=== PATIENT | female | born 1975 | race Caucasian/White ===

== ENCOUNTER 2016-07-03 14:55 | Observation (INO) | payer OTHER ==
[2016-07-03] MEDS ORDERED: SODIUM CHLORIDE 0.9% 1,000 ML IV STA (15:22)
[2016-07-03] MEDS ORDERED: MORPHINE SULFATE 4 MG/ML SYRINGE IV STA (15:22)
[2016-07-03 15:50] LABS: Basophils % (A) 1 %; CH 32.7; CHCM 33.5; Eosinophils # (A) 0.4 k/uL (0-0.7); Eosinophils % (A) 5 %; HCT 39.5 % (34.0-46.0); HGB 13.1 gm/dL (11.4-16.0); Luc % (Auto) 4; Lymphocytes # (A) 2.5 k/uL (1.0-4.8); Lymphocytes % (A) 35 %; MCH 32.4 pg (25.0-35.0); MCHC 33.1 g/dL (31.0-37.0); Mean Platelet Volume 7.6; Monocytes # (A) 0.6 k/uL (0-1.0); Monocytes % (A) 8 %; Neutrophils # (A) 3.4 k/uL (1.3-7.7); Neutrophils % (A) 47 %; RBC 4.03 m/uL (3.80-5.40); RDW 12.2 % (11.5-15.5); WBC 7.3 k/uL (3.8-10.6)
--- NOTE | 2016-07-03 15:56 | ED ---
General Adult HPI - General Chief complaint: Chest Pain Stated complaint: Chest Pain Time Seen by Provider: 07/03/16 15:16 Source: patient, RN notes reviewed, old records reviewed Mode of arrival: wheelchair Limitations: no limitations - History of Present Illness Initial comments: This is a 40-year-old female year for evaluation of chest pain. Patient has anterior chest pain sitting on her chest heaviness. Patient is a smoker but not high blood pressure Gisell show no diabetes, positive family history of both aneurysm and sudden cardiac mother and father. Patient coming in with chest pain today, patient states chest pain started last night and today no fevers cough or congestion or travel history no significant sick contacts and no prior history of similar symptoms. Patient denies modifying factors for pain home, not worse with exertion no shortness of breath and no diaphoresis patient denies history of alcohol abuse no bowel pain no nausea vomiting - Related Data Home Medications Medication Instructions Recorded Confirmed No Known Home Medications [No 07/03/16 07/03/16 Known Home Medications] Allergies Allergy/AdvReac Type Severity Reaction Status Date / Time No Known Allergies Allergy Verified 07/03/16 15:38 Review of Systems ROS Statement: Those systems with pertinent positive or pertinent negative responses have been documented in the HPI. ROS Other: All systems not noted in ROS Statement are negative. Past Medical History Past Medical History: No Reported History History of Any Multi-Drug Resistant Organisms: None Reported Past Surgical History: Tubal Ligation Past Psychological History: No Psychological Hx Reported Smoking Status: Current every day smoker Past Alcohol Use History: None Reported Past Drug Use History: Marijuana - Past Family History Mother Additional Family Medical History / Comment(s): AAA - pt at 58 from dx Father Family Medical History: Coronary Artery Disease (CAD), Diabetes Mellitus, Hypertension Additional Family Medical History / Comment(s): passed with heart issues General Exam Limitations: no limitations General appearance: alert, in no apparent distress, anxious Head exam: Present: atraumatic, normocephalic, normal inspection Eye exam: Present: normal appearance, PERRL, EOMI. Absent: scleral icterus, conjunctival injection, periorbital swelling ENT exam: Present: normal exam, mucous membranes moist Neck exam: Present: normal inspection. Absent: tenderness, meningismus, lymphadenopathy Respiratory exam: Present: normal lung sounds bilaterally. Absent: respiratory distress, wheezes, rales, rhonchi, stridor Cardiovascular Exam: Present: regular rate, normal rhythm, normal heart sounds. Absent: systolic murmur, diastolic murmur, rubs, gallop, clicks GI/Abdominal exam: Present: soft, normal bowel sounds. Absent: distended, tenderness, guarding, rebound, rigid Extremities exam: Present: normal inspection, full ROM, normal capillary refill. Absent: tenderness, pedal edema, joint swelling, calf tenderness Back exam: Present: normal inspection Neurological exam: Present: alert, oriented X3, CN II-XII intact Psychiatric exam: Present: normal affect, normal mood Skin exam: Present: warm, dry, intact, normal color. Absent: rash Course Vital Signs 07/03/16 07/03/16 07/03/16 15:05 15:31 15:41 Temperature 97.7 F 97.1 F L Pulse Rate 72 69 Pulse Rate [ 74 [employer] Executive ] Respiratory 23 15 Rate Blood Pressure 145/86 129/90 O2 Sat by Pulse 100 96 Oximetry 07/03/16 07/03/16 16:48 18:03 Temperature 97.9 F Pulse Rate 53 L 54 L Pulse Rate [ [employer] Executive ] Respiratory 16 16 Rate Blood Pressure 135/81 121/69 O2 Sat by Pulse 97 100 Oximetry - Reevaluation(s) Reevaluation #1: 07/03/16 16:48 Patient's pain is improved with pain control Medical Decision Making - Medical Decision Making 40 female here for evaluation of chest pain, anterior chest pain with history of family heart disease mother father with heart , patient smoker no other cardiac risk factors. Patient does have a CT which is negative for PE or dissection, patient will be admitted for cardiac observation initial troponin is negative as well as EKG negative for ST elevation - Lab Data Result diagrams: 07/05/16 06:37 07/03/16 15:35 Lab Results 07/03/16 07/03/16 07/03/16 Range/Units 15:35 15:35 15:35 WBC 7.3 (3.8-10.6) k/uL RBC 4.03 (3.80-5.40) m/uL Hgb 13.1 (11.4-16.0) gm/dL Hct 39.5 (34.0-46.0) % MCV 98.0 (80.0-100.0) fL MCH 32.4 (25.0-35.0) pg MCHC 33.1 (31.0-37.0) g/dL RDW 12.2 (11.5-15.5) % Plt Count 252 (150-450) k/uL Neutrophils % 47 % Lymphocytes % 35 % Monocytes % 8 % Eosinophils % 5 % Basophils % 1 % Neutrophils # 3.4 (1.3-7.7) k/uL Lymphocytes # 2.5 (1.0-4.8) k/uL Monocytes # 0.6 (0-1.0) k/uL Eosinophils # 0.4 (0-0.7) k/uL Basophils # 0.0 (0-0.2) k/uL PT (9.0-12.0) sec INR (<1.1) APTT (22.0-30.0) sec D-Dimer (<0.60) mg/L FEU Sodium 142 (137-145) mmol/L Potassium 4.1 (3.5-5.1) mmol/L Chloride 107 (98-107) mmol/L Carbon Dioxide 24 (22-30) mmol/L Anion Gap 11 mmol/L BUN 11 (7-17) mg/dL Creatinine 0.60 (0.52-1.04) mg/dL Est GFR (MDRD) Af Amer >60 (>60 ml/min/1.73 sqM) Est GFR (MDRD) Non-Af >60 (>60 ml/min/1.73 sqM) Glucose 89 (74-99) mg/dL Calcium 9.5 (8.4-10.2) mg/dL Magnesium 2.0 (1.6-2.3) mg/dL Total Bilirubin 0.9 (0.2-1.3) mg/dL AST 15 (14-36) U/L ALT 29 (9-52) U/L Alkaline Phosphatase 65 (38-126) U/L Total Creatine Kinase 60 (30-135) U/L CK-MB (CK-2) 0.8 (0.0-2.4) ng/mL CK-MB (CK-2) Rel Index 1.3 Troponin I <0.012 (0.000-0.034) ng/mL Total Protein 7.8 (6.3-8.2) g/dL Albumin 4.4 (3.5-5.0) g/dL Lipase 35 (23-300) U/L 07/03/16 07/03/16 Range/Units 15:35 15:35 WBC (3.8-10.6) k/uL RBC (3.80-5.40) m/uL Hgb (11.4-16.0) gm/dL Hct (34.0-46.0) % MCV (80.0-100.0) fL MCH (25.0-35.0) pg MCHC (31.0-37.0) g/dL RDW (11.5-15.5) % Plt Count (150-450) k/uL Neutrophils % % Lymphocytes % % Monocytes % % Eosinophils % % Basophils % % Neutrophils # (1.3-7.7) k/uL Lymphocytes # (1.0-4.8) k/uL Monocytes # (0-1.0) k/uL Eosinophils # (0-0.7) k/uL Basophils # (0-0.2) k/uL PT 10.4 (9.0-12.0) sec INR 1.0 (<1.1) APTT 26.2 (22.0-30.0) sec D-Dimer <0.17 (<0.60) mg/L FEU Sodium (137-145) mmol/L Potassium (3.5-5.1) mmol/L Chloride (98-107) mmol/L Carbon Dioxide (22-30) mmol/L Anion Gap mmol/L BUN (7-17) mg/dL Creatinine (0.52-1.04) mg/dL Est GFR (MDRD) Af Amer (>60 ml/min/1.73 sqM) Est GFR (MDRD) Non-Af (>60 ml/min/1.73 sqM) Glucose (74-99) mg/dL Calcium (8.4-10.2) mg/dL Magnesium (1.6-2.3) mg/dL Total Bilirubin (0.2-1.3) mg/dL AST (14-36) U/L ALT (9-52) U/L Alkaline Phosphatase (38-126) U/L Total Creatine Kinase (30-135) U/L CK-MB (CK-2) (0.0-2.4) ng/mL CK-MB (CK-2) Rel Index Troponin I (0.000-0.034) ng/mL Total Protein (6.3-8.2) g/dL Albumin (3.5-5.0) g/dL Lipase (23-300) U/L - Radiology Data Radiology results: report reviewed (Chest x-ray and CT negative for acute disease), image reviewed Critical Care Time Critical Care Time: Yes Total Critical Care Time: 31 Disposition Clinical Impression: Chest pain Disposition: ADMITTED IP TO THIS HOSP Condition: Undetermined
[2016-07-03 16:02] LABS: ALT 29 U/L (9-52); AST 15 U/L (14-36); Alkaline Phosphatase 65 U/L (38-126); Anion Gap 11 mmol/L; Blood Urea Nitrogen 11 mg/dL (7-17); Calcium 9.5 mg/dL (8.4-10.2); Carbon Dioxide 24 mmol/L (22-30); Chloride 107 mmol/L (98-107); Glucose 89 mg/dL (74-99); Non-African American GFR(MDRD) >60 (>60 ml/min/1.73 sqM); Potassium 4.1 mmol/L (3.5-5.1); Sodium 142 mmol/L (137-145); Total Bilirubin 0.9 mg/dL (0.2-1.3); Total Protein 7.8 g/dL (6.3-8.2)
[2016-07-03 16:04] LABS: Partial Thromboplastin Time 26.2 sec (22.0-30.0); Prothrombin Time 10.4 sec (9.0-12.0)
[2016-07-03 16:07] LABS: Creatine Kinase 60 U/L (30-135)
[2016-07-03 16:19] LABS: Creatine Kinase MB 0.8 ng/mL (0.0-2.4); Troponin I <0.012 ng/mL (0.000-0.034)
--- NOTE | 2016-07-03 16:28 | XR ---
EXAMINATION TYPE: XR chest 2V DATE OF EXAM: 07/03/2016 4:19 PM COMPARISON: 10/18/2015 HISTORY: 40-year-old female with chest pain and shortness of breath for 4 days TECHNIQUE: Frontal and lateral views FINDINGS: The cardiomediastinal silhouette, aorta, and pulmonary vasculature are within normal limits. Lungs an d pleural spaces are clear. IMPRESSION: No acute cardiopulmonary process.
[2016-07-03] MEDS ORDERED: RX INFO: IV CONTRAST WAS GIVEN 1 EACH MISC MISCELLANE PRN (16:45)
[2016-07-03] MEDS ORDERED: NITROGLYCERIN SL TABS 0.4 MG TAB SUBLINGUAL PRN (16:46)
[2016-07-03] MEDS ORDERED: MORPHINE SULFATE 4 MG/ML SYRINGE IV PRN (16:46)
[2016-07-03] MEDS ORDERED: ASPIRIN 81 MG CHEW PO STA (16:46)
--- NOTE | 2016-07-03 17:29 | CT ---
EXAMINATION TYPE: CT angio chest DATE OF EXAM: 07/03/2016 5:08 PM COMPARISON: Correlation radiograph same day HISTORY: 40-year-old female complains of chest pain and difficulty breathing. TECHNIQUE: Contiguous axial scanning of the chest performed with IV Contrast, patient injected with 1 00 mL of Omnipaque 350. Coronal/sagittal MIP reconstructions performed. CT DLP: 115.2 mGycm Automated exposure control for dose reduction was used. FINDINGS: Heart is normal size without pericardial effusion. Aorta is normal caliber with a bovine configuration to the aortic arch. No thoracic lymphadenopathy. There is satisfactory opacification of the pulmonary arterial system without evidence for pulmonary e mbolus. There is mild diffuse bronchial wall thickening and mild centrilobular emphysema. No consolidation or pleural effusion. Tiny hiatal hernia. Otherwise, visualized upper abdomen shows no gross abnormal body. Bones: No osseous destructive process. IMPRESSION: 1. NO EVIDENCE FOR PULMONARY EMBOLUS. 2. COPD IN THIS RELATIVELY YOUNGER PATIENT. 3. NO ACUTE PULMONARY PROCESS.
[2016-07-03] MEDS: SODIUM CHLORIDE 0.9% 1,000 ML IV SCH (17:31)
[2016-07-03] MEDS ORDERED: HEPARIN SODIUM,PORCINE 5,000 UNIT/ML 1 ML VIAL IV ONE (18:08)
[2016-07-03] MEDS ORDERED: HEPARIN SODIUM,PORCINE 5,000 UNIT/ML 1 ML VIAL IV PRN (18:08)
[2016-07-03] MEDS ORDERED: HEPARIN SODIUM,PORCINE/D5W PMX 25,000 UNIT in DEXTROSE/WATER 1 500ML.BAG IV SCH (18:15)
[2016-07-03 19:28] LABS: Basophils # (A) 0.1 k/uL (0-0.2); Basophils % (A) 1 %; CH 32.7; CHCM 32.9; Eosinophils # (A) 0.6 k/uL (0-0.7); Eosinophils % (A) 6 %; HCT 39.3 % (34.0-46.0); HDW 2.11; HGB 12.9 gm/dL (11.4-16.0); Luc # (Auto) 0.37; Luc % (Auto) 4; Lymphocytes # (A) 3.2 k/uL (1.0-4.8); Lymphocytes % (A) 34 %; MCH 32.8 pg (25.0-35.0); MCHC 32.9 g/dL (31.0-37.0); MCV 99.9 fL (80.0-100.0); Mean Platelet Volume 8.3; Monocytes # (A) 0.6 k/uL (0-1.0); Monocytes % (A) 7 %; Neutrophils # (A) 4.4 k/uL (1.3-7.7); Neutrophils % (A) 48 %; RBC 3.93 m/uL (3.80-5.40); RDW 12.2 % (11.5-15.5); WBC 9.3 k/uL (3.8-10.6); WBC (Perox) 9.69
[2016-07-03 19:53] LABS: INR 1.1 (<1.1); Prothrombin Time 11.1 sec (9.0-12.0)
[2016-07-03 20:06] LABS: Partial Thromboplastin Time 101.9 sec (22.0-30.0)
[2016-07-03 22:14] LABS: Creatine Kinase 45 U/L (30-135)
[2016-07-03 22:27] LABS: Creatine Kinase MB 0.7 ng/mL (0.0-2.4); Troponin I <0.012 ng/mL (0.000-0.034)
[2016-07-04 03:19] LABS: Basophils # (A) 0.1 k/uL (0-0.2); Basophils % (A) 1 %; CH 32.7; CHCM 32.4; Eosinophils # (A) 0.7 k/uL (0-0.7); Eosinophils % (A) 9 %; HCT 36.6 % (34.0-46.0); HDW 2.02; HGB 11.8 gm/dL (11.4-16.0); Luc % (Auto) 4; Lymphocytes # (A) 3.2 k/uL (1.0-4.8); Lymphocytes % (A) 40 %; MCH 32.7 pg (25.0-35.0); MCHC 32.2 g/dL (31.0-37.0); MCV 101.6 fL (80.0-100.0); Mean Platelet Volume 7.6; Monocytes # (A) 0.6 k/uL (0-1.0); Monocytes % (A) 7 %; Neutrophils # (A) 3.2 k/uL (1.3-7.7); Neutrophils % (A) 40 %; RDW 12.3 % (11.5-15.5); WBC 8.1 k/uL (3.8-10.6); WBC (Perox) 8.33
[2016-07-04 03:48] LABS: Creatine Kinase 43 U/L (30-135)
[2016-07-04 04:01] LABS: Creatine Kinase MB 0.6 ng/mL (0.0-2.4); Troponin I <0.012 ng/mL (0.000-0.034)
[2016-07-04 04:12] LABS: Cholesterol 123 mg/dL (<200); HDL Cholesterol 43 mg/dL (40-60); Triglycerides 73 mg/dL (<150)
[2016-07-04 07:37] VITALS: RESP 16
[2016-07-04] MEDS ORDERED: ATORVASTATIN 80 MG TAB PO SCH (09:00)
[2016-07-04] MEDS: ASPIRIN 325 MG TAB PO SCH (12:47)
[2016-07-04] MEDS: SODIUM CHLORIDE 0.9% 1,000 ML IV SCH ×2 (12:49→19:25)
--- NOTE | 2016-07-04 13:59 | CONS ---
DATE OF CONSULTATION: Mrs. Bernardo is a 40-year-old female with no prior documented history of coronary artery disease, who yesterday while working at [employer] had symptoms of chest discomfort, lasted for over an hour. Because of that she came into the emergency room. Patient is reasonably active physically, has no exertional chest pain. She has no significant dyspnea on exertion. No dizziness, palpitation or syncope. No PND, orthopnea, or peripheral edema. Her coronary risk factors are positive for smoking. She is nondiabetic, not hyperlipidemic and no documented hypertension. Her medications at home are none. REVIEW OF SYSTEMS: RESPIRATORY SYSTEM: She has no recent wheezing. No cough. No history of obstructive lung disease. GI SYSTEM: No recent GI bleeding in her. No peptic ulcer disease. SYSTEM: No dysuria or hematuria. NERVOUS SYSTEM: No stroke or seizure. PHYSICAL EXAMINATION: A 40-year-old female, alert, oriented, in no apparent distress. Blood pressure was 103/55 with a heart rate in the 60s. HEAD: Normocephalic. EYES: Sclerae anicteric. NECK: Good upstroke. No bruit. No jugular venous distention. LUNGS: Clear to auscultation. HEART: Regular rate and rhythm. S1, S2, no S3, no S4, no murmur or rub with chest wall tenderness. ABDOMEN: Soft, nontender, positive bowel sounds. No organomegaly. EXTREMITIES: No edema. Intact distal pulses. Lab data revealed troponin less than 0.012 for 3 samples. Cholesterol 123, LDL of 65. Hemoglobin of 11.8. EKG reveals sinus mechanism with minor nonspecific T wave inversion anteriorly, otherwise no acute changes. IMPRESSION: 1. Chest discomfort, atypical for ischemic heart disease, probably noncardiac. 2. History of chronic tobacco use. RECOMMENDATION: I have recommended to stop the heparin and the statin, proceed with a stress echocardiogram. If there is no evidence of inducible ischemia, then no further cardiac work-up will be needed. I have discussed with her the importance of smoking cessation. Thank you for this consult. We will follow with you.
[2016-07-05 07:10] LABS: Basophils % (A) 0 %; CH 32.8; CHCM 32.7; Eosinophils # (A) 0.6 k/uL (0-0.7); Eosinophils % (A) 7 %; HCT 38.9 % (34.0-46.0); HDW 2.04; HGB 12.5 gm/dL (11.4-16.0); Luc # (Auto) 0.28; Luc % (Auto) 4; Lymphocytes # (A) 2.1 k/uL (1.0-4.8); Lymphocytes % (A) 27 %; MCH 32.4 pg (25.0-35.0); MCHC 32.2 g/dL (31.0-37.0); MCV 100.6 fL (80.0-100.0); Mean Platelet Volume 7.8; Monocytes # (A) 0.5 k/uL (0-1.0); Monocytes % (A) 7 %; Neutrophils # (A) 4.1 k/uL (1.3-7.7); Neutrophils % (A) 55 %; RBC 3.86 m/uL (3.80-5.40); RDW 12.4 % (11.5-15.5); WBC 7.6 k/uL (3.8-10.6)
[2016-07-05 07:48] VITALS: TEMP 97.9
--- NOTE | 2016-07-05 09:40 | HP ---
DATE OF ADMISSION: 07/03/2016 CHIEF COMPLAINT: Atypical chest pain. HISTORY OF PRESENT ILLNESS: this is another admission for this 40-year-old G3, P3, A0 white female. She developed a fairly intense aching or sharp pain in her left upper chest toward the anterior axillary line. She had a little bit of shortness of breath and no diaphoresis, nausea etc. came to emergency room and was admitted for observation. Studies in the ER were negative. REVIEW OF SYSTEMS: She has had no fever, chills, cough, hemoptysis, purulent sputum production, etc. She has had no murmurs, rheumatic fever, hypertension, no heart disease, angina, etc. She did think that her heart was "skipping." She has had no abdominal pain, food intolerance, indigestion, nausea, vomiting, hematemesis, melena, hematochezia, jaundice, hematuria, frequency, urgency, arthralgias, polys, diabetes etc. Past medical history, family history, personal and social history are unremarkable and noncontributory. ( ). MEDICATIONS: None. She has no allergies. The only surgery she has had is tubal ligation. She smokes about half of pack of cigarettes a day and uses marijuana. She has a family history with the mother who had an abdominal aortic aneurysm, as well as two aunts. Her dad had a pacemaker, hypertension, and diabetes. PHYSICAL EXAMINATION: VITAL SIGNS: Blood pressure is 131/64 with a pulse of 70 and respirations are ( ), and she is afebrile. GENERAL: She appeared to be slender in no acute distress. SKIN: Skin color is normal. Skin is warm and dry. Lymph nodes are not enlarged. Head, ears, eyes, mouth, and throat are normal. NECK: Neck veins not distended. Thyroid is not enlarged. Chest is clear. Cardiac exam is normal. ABDOMEN: Soft, nontender. EXTREMITIES: Normal. NEUROLOGICAL: Intact. She was admitted to the hospital with diagnoses: Atypical chest pain. PLAN: 1. Bed rest. 2. IV fluids. 3. Serial EKGs and enzymes.
--- NOTE | 2016-07-05 09:43 | PN ---
DATE OF SERVICE: 07/04/2016 CHIEF COMPLAINT: Chest pain. HISTORY OF PRESENT ILLNESS: This lady is doing well and she has had no pain. Enzymes have been normal and she is having stress test tomorrow. PHYSICAL EXAMINATION: CHEST: Clear. CARDIAC: Normal. ABDOMEN: Soft, nontender. EXTREMITIES: Normal. IMPRESSION: Atypical chest pain. PLAN: Increase activity and probably home tomorrow.
--- NOTE | 2016-07-05 10:23 | ECHOF ---
Referral Reason:chest pain MEASUREMENTS -------- HEIGHT: 175.3 cm WEIGHT: 59.0 kg BP: RVIDd: 2.9 cm (< 3.3) IVSd: 0.9 cm (0.6 - 1.1) LVIDd: 4.4 cm (3.9 - 5.3) LVPWd: 0.9 cm (0.6 - 1.1) IVSs: 1.0 cm LVIDs: 3.7 cm LVPWs: 1.0 cm LA Diam: 3.2 cm (2.7 - 3.8) LAESV Index (A-L): 31.01 ml/m Ao Diam: 2.6 cm (2.0 - 3.7) AV Cusp: 2.1 cm (1.5 - 2.6) LA Diam: 3.0 cm (2.7 - 3.8) MV EXCURSION: 24.469 mm (> 18.000) MV EF SLOPE: 96 mm/s (70 - 150) EPSS: 0.3 cm MV E Constantine: 0.81 m/s MV DecT: 189 ms MV A Constantine: 0.36 m/s MV E/A Ratio: 2.27 RAP: 5.00 mmHg RVSP: 26.66 mmHg FINDINGS -------- Sinus rhythm. This was a technically good study. LV size, wall thickness and systolic function are normal, with an EF greater than 55%. The right ventricle is normal in size. LA is moderately dilated 34-39 ml/m2 The right atrial size is normal. The aortic valve is trileaflet, and appears structurally normal. No aortic stenosis or regurgitation. Hchy-gv-xjikxvss mitral regurgitation is present. Mild tricuspid regurgitation present. There is no evidence of pulmonary hypertension. The right ventricular systolic pressure, as measured by Doppler, is 26.66mmHg. There is no pulmonic regurgitation present. The aortic root size is normal. There is no pericardial effusion. CONCLUSIONS -------- 1. LV size, wall thickness and systolic function are normal, with an EF greater than 55%. 2. LA is moderately dilated 34-39 ml/m2 3. Nwbn-me-xsiclons mitral regurgitation is present. 4. Mild tricuspid regurgitation present. 5. There is no evidence of pulmonary hypertension. 6. The right ventricular systolic pressure, as measured by Doppler, is 26.66mmHg. ACCOUNTING METHODS ANALYST: Shannon Callejas RDCS
--- NOTE | 2016-07-05 11:31 | PN ---
Mrs. Bernardo is a 40-year-old female who presented with symptoms of chest discomfort that had some atypical feature for ischemic heart disease. She is doing well this morning, denying any chest pain. Her breathing has been stable. Denies any dizziness or palpitation. PHYSICAL EXAMINATION: Blood pressure of 109/50 with a heart in the 50s. LUNGS: Clear. HEART: Regular rate rhythm. S1, S2, no S3, no rub. ABDOMEN: Soft, nontender. EXTREMITIES: No edema. IMPRESSION: 1. Chest discomfort, atypical for ischemic heart disease. 2. Chronic tobacco use. RECOMMENDATION: Will proceed with stress echocardiogram today and if there is no evidence of inducible ischemia, then no further cardiac work-up will be needed.
[2016-07-05 11:53] VITALS: BP 122/77; PULSE 73
--- NOTE | 2016-07-05 12:31 | P.DS ---
Providers Date of admission: 07/03/16 17:52 Expected date of discharge: 07/05/16 Attending physician: Eugene Rosen Consults: Dr. Valera cardiology Primary care physician: Eugene Rosen Hospital Course: 40-year-old female presented on the day of admission to the emergency room with a chief complaint of developing anterior chest wall discomfort described as a heaviness in the chest. Patient denied any fever chills. Patient stated that she been feeling short of breath for the past several days. Patient did have a CAT scan of the chest to rule out a pulmonary emboli it showed no evidence of pulmonary emboli no acute pulmonary process. COPD in a relatively young patient noted patient does have a positive history of nicotine dependency. A cardiology consultation was requested cardiac enzymes 3 sets were negative. Patient did undergo a dobutamine stress echo. The echocardiogram showed systolic function normal EF greater than 55% no evidence of pulmonary hypertension there were no further episodes of chest pain patient was felt to be appropriate to be discharged home. Patient was provided with smoking cessation information and advised to stop smoking cigarettes Impression discharge diagnosis Chest pain present on admission atypical features no evidence of acute coronary syndrome Chronic nicotine abuse CAT scan of the chest no evidence of a pulmonary emboli evidence of COPD Echocardiogram reserved LV function EF 55% Dobutamine stress echo unremarkable The above dictated assessment and findings were discussed with dr Rosen Impression and the plan of care have been dictated as directed. Carine Devine nurse practitioner acting as a scribe for Dr. Rosen. Patient Condition at Discharge: Undetermined Plan - Discharge Summary Discharge Medication List No Known Home Medications [No Known Home Medications] 07/03/16 [History] Follow up Appointment(s)/Referral(s): Eugene Rosen MD [Primary Care Provider] - 1-2 days (07/07 at 12:30pm) Patient Instructions/Handouts: Chest Pain (DC) Activity/Diet/Wound Care/Special Instructions: Provide patient with smoking cessation information has been advised to stop smoking cigarettes Discharge Disposition: HOME SELF-CARE
[2016-07-05] MEDS: ASPIRIN 325 MG TAB PO SCH (12:34)
[2016-07-05] MEDS: SODIUM CHLORIDE 0.9% 1,000 ML IV SCH (12:34)
--- NOTE | 2016-07-05 12:44 | ECHOS ---
DATE OF SERVICE: 07/05/2016 AGE: 40Y SEX: F HT: 68" WT: 130 lbs. Protocol Norbert: X Others: Stress Echo Stage: 4 Dur. of Exercise: 9:30 *Heart Rate Blood Pressure *Rest: 61 Rest: 135/65 * *Max. Achieved: 158 Maximum BP: 187/77 85% PMHR: 155 100% PMHR: 185 *METS: 10.1 INDICATIONS: Chest pain. MEDICATIONS: None. Patient was exercised for a total period of 9 minutes and 30 seconds, a rate of 158 was achieved. Maximum blood pressure of 187/77 mmHg was noted. Resting EKG showed sinus rhythm with normal SD interval and QRS duration and normal ST-T waves. No ST segment depression suggestive of ischemia is noted. The baseline echocardiographic images reveal normal left ventricular chamber size with normal left ventricular systolic function. In the immediate postexercise period, normal increase in the wall thickness and contractility is noted. FINAL IMPRESSION: This stress echocardiographic study is negative for stress-induced ischemia. EKG portion of the stress test is not suggestive of ischemia. Patient's exercise tolerance is normal.
--- NOTE | 2016-07-05 21:10 | PN ---
CHIEF COMPLAINT: Atypical chest pain. HISTORY OF PRESENT ILLNESS: This lady is going down for a stress test today. PHYSICAL EXAMINATION: Unchanged. IMPRESSION: Atypical chest pain. PLAN: Stress test today and then probably home. This will be arranged by the nurse practitioner.
== END 2016-07-05 13:51 | disposition home or self-care (01) ==
LOC: EC 14:55 → 3SUR 17:52 → 3OBS 07-04 18:52
PROVIDERS: ADMIT Family Medicine; ATTEND Family Medicine
DX: R07.89 Other chest pain (principal); J44.9 Chronic obstructive pulmonary disease, unspecified; F17.210 Nicotine dependence, cigarettes, uncomplicated; Z82.49 Family history of ischemic heart disease and other diseases of the circulatory system; Z83.3 Family history of diabetes mellitus; Z82.41 Family history of sudden cardiac death; Z84.89 Family history of other specified conditions
CPT/HCPCS: 36415; 93005; 93017; 93306; 93350; 85379; 80061; 80053; 82550 ×2; 82553 ×2; 83690; 83735; 84484 ×2; 85025 ×3; 85610; 85730 ×2; 71020; 71275; 99291; 96375; 96361 ×2; G0378 ×3; J2270; J1644 ×3; Q9967; 96366; 96376

== ENCOUNTER 2018-07-10 14:12 | Emergency (ER) | payer OTHER ==
[2018-07-10] MEDS ORDERED: ASPIRIN 81 MG PO STA (14:35)
[2018-07-10] MEDS ORDERED: ONDANSETRON 4 MG/2 ML VIAL IVP STA (14:49)
[2018-07-10] MEDS ORDERED: MORPHINE SULFATE 2 MG/ML SYRINGE IVP ONE (14:49)
[2018-07-10] MEDS ORDERED: IPRATROPIUM-ALBUTEROL 3 ML NEB INHALATION STA (14:49)
[2018-07-10 15:03] LABS: Basophils % (A) 0 %; Eosinophils # (A) 0.5 k/uL (0-0.7); Eosinophils % (A) 7 %; HCT 40.8 % (34.0-46.0); HGB 13.5 gm/dL (11.4-16.0); Lymphocytes # (A) 2.5 k/uL (1.0-4.8); Lymphocytes % (A) 38 %; MCH 32.4 pg (25.0-35.0); MCHC 33.1 g/dL (31.0-37.0); Mean Platelet Volume 8.1; Monocytes # (A) 0.5 k/uL (0-1.0); Monocytes % (A) 8 %; Neutrophils # (A) 2.8 k/uL (1.3-7.7); Neutrophils % (A) 43 %; Platelet Count 227 k/uL (150-450); RBC 4.17 m/uL (3.80-5.40); RDW 12.5 % (11.5-15.5); WBC 6.5 k/uL (3.8-10.6)
[2018-07-10 15:14] LABS: D-Dimer 0.23 mg/L FEU (<0.60); INR 0.9 (<1.2); Partial Thromboplastin Time 25.7 sec (22.0-30.0); Prothrombin Time 9.8 sec (9.0-12.0)
[2018-07-10 15:24] LABS: ALT 18 U/L (9-52); AST 16 U/L (14-36); Albumin 4.4 g/dL (3.5-5.0); Alkaline Phosphatase 54 U/L (38-126); Anion Gap 8 mmol/L; Blood Urea Nitrogen 15 mg/dL (7-17); Calcium 9.6 mg/dL (8.4-10.2); Carbon Dioxide 20 mmol/L (22-30); Chloride 109 mmol/L (98-107); Glucose 91 mg/dL (74-99); Magnesium 1.8 mg/dL (1.6-2.3); Potassium 4.4 mmol/L (3.5-5.1); Sodium 137 mmol/L (137-145); Total Bilirubin 0.6 mg/dL (0.2-1.3); Total Protein 7.8 g/dL (6.3-8.2)
--- NOTE | 2018-07-10 15:34 | ED ---
Chest Pain HPI - General Chief Complaint: Chest Pain Stated Complaint: Chest pain, sob Time Seen by Provider: 07/10/18 14:34 Source: patient, RN notes reviewed Mode of arrival: ambulatory Limitations: no limitations - History of Present Illness Initial Comments: 42-year-old female presents emergency Department chief complaint of chest pain or shortness breath. Patient states started last night she has intense right- sided chest pain radiates up. Patient states that she has had a stress test 2 years ago which was negative. Patient unsure about family history patient is a daily smoker no history of hyperlipidemia hypertension or diabetes. Patient states that her significant deep inspiration not worse with movement. - Related Data Previous Rx's Medication Instructions Recorded Albuterol Sulfate [Proair Hfa] 1 - 2 puff INHALATION Q4HR PRN #1 07/10/18 inhaler Azithromycin [Zithromax Z-pack] 0 mg PO DIRECTED #1 pack 07/10/18 predniSONE 50 mg PO DAILY #5 tab 07/10/18 Allergies Allergy/AdvReac Type Severity Reaction Status Date / Time No Known Allergies Allergy Verified 07/10/18 15:49 Review of Systems ROS Statement: Those systems with pertinent positive or pertinent negative responses have been documented in the HPI. ROS Other: All systems not noted in ROS Statement are negative. EKG Findings - EKG Comments: EKG Findings:: EKG performed at 14:41 normal sinus rhythm with rate of 63 [place] 176 QRS 86/QTC 398/407. Repeat EKG performed at 16:36 sinus bradycardia with a rate of 57 W[place] 192 QRS 84 QT status QTC 428/460 no acute changes Past Medical History Past Medical History: No Reported History History of Any Multi-Drug Resistant Organisms: None Reported Past Surgical History: Tubal Ligation Past Anesthesia/Blood Transfusion Reactions: No Reported Reaction Past Psychological History: No Psychological Hx Reported Smoking Status: Current every day smoker Past Alcohol Use History: None Reported Past Drug Use History: Marijuana - Past Family History Mother Additional Family Medical History / Comment(s): AAA - pt at 58 from dx Father Family Medical History: Coronary Artery Disease (CAD), Diabetes Mellitus, Hypertension Additional Family Medical History / Comment(s): passed with heart issues General Exam Limitations: no limitations General appearance: alert, in no apparent distress Head exam: Present: atraumatic, normocephalic, normal inspection Eye exam: Present: normal appearance, PERRL, EOMI. Absent: scleral icterus, conjunctival injection, periorbital swelling ENT exam: Present: normal exam, mucous membranes moist Neck exam: Present: normal inspection, full ROM. Absent: tenderness, meningismus, lymphadenopathy Respiratory exam: Present: normal lung sounds bilaterally. Absent: respiratory distress, wheezes, rales, rhonchi, stridor, chest wall tenderness Cardiovascular Exam: Present: regular rate, normal rhythm, normal heart sounds. Absent: systolic murmur, diastolic murmur, rubs, gallop, clicks GI/Abdominal exam: Present: soft, normal bowel sounds. Absent: distended, tenderness, guarding, rebound, rigid Course Vital Signs 07/10/18 07/10/18 07/10/18 14:20 15:58 16:04 Temperature 98.1 F Pulse Rate 75 50 L 52 L Respiratory 18 Rate Blood Pressure 125/78 O2 Sat by Pulse 97 Oximetry Chest Pain MDM - MDM 42-year-old female presented emergency department for right-sided chest pain. Symptoms improved greatly after DuoNeb treatment. She did have notable wheezing on exam. Patient's this factors only include smoking. Patient is advised to quit smoking counseled in detail greater than 3 minutes. Patient we discharged on prednisone, albuterol inhaler, azithromycin. Disposition Clinical Impression: Pleuritic chest pain, Acute bronchitis Disposition: HOME SELF-CARE Condition: Stable Instructions (If sedation given, give patient instructions): COPD (Chronic Obstructive Pulmonary Disease) (ED) Additional Instructions: Please return to the Emergency Department if symptoms worsen or any other concerns. Prescriptions: Albuterol Sulfate [Proair Hfa] 1 - 2 puff INHALATION Q4HR PRN #1 inhaler PRN Reason: difficulty in breathing Azithromycin [Zithromax Z-pack] 0 mg PO DIRECTED #1 pack predniSONE 50 mg PO DAILY #5 tab Is patient prescribed a controlled substance at d/c from ED?: No Referrals: Eugene Rosen MD [Primary Care Provider] - 1-2 days Time of Disposition: 16:26
--- NOTE | 2018-07-10 16:08 | XR ---
EXAMINATION TYPE: XR chest 2V DATE OF EXAM: 07/10/2018 COMPARISON: NONE HISTORY: Chest pain TECHNIQUE: Frontal and lateral views of the chest are obtained. FINDINGS: There is no focal air space opacity, pleural effusion, or pneumothorax seen. The cardiac silhouette size is within normal limits. The osseous structures are intact. Prominent lung lines ma y be indicative of underlying COPD. There are cardiac leads. IMPRESSION: No acute cardiopulmonary process.
[2018-07-10 16:55] VITALS: BP 104/66; PULSE 66; RESP 19; TEMP 998.7
== END 2018-07-10 16:55 | disposition home or self-care (01) ==
LOC: EC 14:12
DX: J20.1 Acute bronchitis due to Hemophilus influenzae (principal); F17.200 Nicotine dependence, unspecified, uncomplicated; Z82.49 Family history of ischemic heart disease and other diseases of the circulatory system; Z71.6 Tobacco abuse counseling; Z53.20 Procedure and treatment not carried out because of patient's decision for unspecified reasons
CPT/HCPCS: 36415; 94640; 93005; 85379; 80053; 83735; 84484; 85025; 85610; 85730; 71046; 99285; 96374; 99406; J2405

== ENCOUNTER 2019-10-26 12:23 | Emergency (ER) | payer OTHER ==
[2019-10-26 13:06] LABS: Appearance,Urine Cloudy (Clear); Bacteria,Urine Rare /hpf; Bilirubin,Urine Negative (Negative); Blood,Urine Moderate (Negative); Color,Urine Yellow; Glucose,Urine (UA) Negative (Negative); Ketones,Urine Negative (Negative); Leukocyte Esterase,Urine Large (Negative); Mucus,Urine Many /hpf; Nitrite,Urine Negative (Negative); PH, Urine 5.5 (5.0-8.0); Protein,Urine 2+ (Negative); RBC,Urine 154 /hpf (0-5); Specific Gravity,Urine 1.016 (1.001-1.035); Squamous Epithelial Cell,Urine 1 /hpf (0-4); Urobilinogen,Urine <2.0 mg/dL (<2.0); WBC,Urine >182 /hpf (0-5)
--- NOTE | 2019-10-26 13:07 | ED ---
Female Urogenital HPI - General Chief complaint: Urogenital Stated complaint: pain with urination Time Seen by Provider: 10/26/19 12:28 Source: patient Limitations: no limitations - History of Present Illness Initial comments: 44-year-old female presented for chief complaint of dysuria urgency frequency. Patient that she has mild left lower back pain. Patient denies fevers chills general malaise. Patient is no additional complaints since the symptoms have been ongoing for the past 2-3 days. Patient denies history of kidney stones. Denies any nausea vomiting diarrhea. Patient denies any pelvic or abdominal pain. Remaining ROS (-). Upon arrival patient appears well there is no signs of acute distress. NOntoxic in appearance. - Related Data Previous Rx's Medication Instructions Recorded Albuterol Sulfate [Proair Hfa] 1 - 2 puff INHALATION Q4HR PRN #1 07/10/18 inhaler Azithromycin [Zithromax Z-pack] 0 mg PO DIRECTED #1 pack 07/10/18 predniSONE 50 mg PO DAILY #5 tab 07/10/18 Cephalexin [Keflex] 500 mg PO Q6HR 7 Days #28 cap 10/26/19 Allergies Allergy/AdvReac Type Severity Reaction Status Date / Time No Known Allergies Allergy Verified 10/26/19 12:27 Review of Systems ROS Statement: Those systems with pertinent positive or pertinent negative responses have been documented in the HPI. ROS Other: All systems not noted in ROS Statement are negative. Past Medical History Past Medical History: No Reported History History of Any Multi-Drug Resistant Organisms: None Reported Past Surgical History: Tubal Ligation Past Anesthesia/Blood Transfusion Reactions: No Reported Reaction Past Psychological History: No Psychological Hx Reported Smoking Status: Current every day smoker Past Alcohol Use History: None Reported Past Drug Use History: Marijuana - Past Family History Mother Additional Family Medical History / Comment(s): AAA - pt at 58 from dx Father Family Medical History: Coronary Artery Disease (CAD), Diabetes Mellitus, Hypertension Additional Family Medical History / Comment(s): passed with heart issues General Exam - General Exam Comments Initial Comments: General: The patient is awake and alert, in no distress Eye: Pupils are equal, round and reactive to light, extra-ocular movements are intact. No nystagmus. There is normal conjunctiva bilaterally. No signs of icterus. Gastrointestinal: Soft, non-distended, non-tender abdomen without masses or organomegaly noted. There is no rebound or guarding present. No CVA tenderness. Musculoskeletal: Normal ROM, no tenderness. Strength 5/5. Sensation intact. Radial pulses equal bilaterally 2+. Neurological: A&O x 3. CN II-XII intact grossly, There are no obvious motor or sensory deficits. Coordination appears grossly intact. Speech is normal. Skin: Skin is warm and dry and no rashes or lesions are noted. Psychiatric: Cooperative, appropriate mood & affect, normal judgment. Limitations: no limitations Course Vital Signs 10/26/19 10/26/19 10/26/19 12:25 14:44 15:45 Temperature 98.2 F 97.4 F L 97.2 F L Pulse Rate 91 78 76 Respiratory 18 18 20 Rate Blood Pressure 128/83 108/77 110/72 O2 Sat by Pulse 98 96 96 Oximetry - Reevaluation(s) Reevaluation #1: 10/26/19 14:12 sign out to keira pending labs Medical Decision Making - Medical Decision Making UA consistent with symptoms concerning for urinary process, Given the RBC. CT wo contrast obtained as patient complaining of left low back pain. No rigth sided pain. Phelbolith felt to be found at the right UVJ no signs of hydronephrosis suggestive obstructing stone. Mild leukocytosis. Patient appears nontoxic. Dis cussed case wt Dr. crockett is detail who is agreeable to care plan and recommends discharge at this time. Patient agreeable to care plan and discharge. - Lab Data Result diagrams: 10/26/19 14:17 10/26/19 14:17 Lab Results 10/26/19 10/26/19 10/26/19 Range/Units 12:47 12:47 14:17 WBC 10.9 H (3.8-10.6) k/uL RBC 3.96 (3.80-5.40) m/uL Hgb 12.9 (11.4-16.0) gm/dL Hct 39.1 (34.0-46.0) % MCV 98.9 (80.0-100.0) fL MCH 32.5 (25.0-35.0) pg MCHC 32.9 (31.0-37.0) g/dL RDW 12.0 (11.5-15.5) % Plt Count 233 (150-450) k/uL Neutrophils % 73 % Lymphocytes % 11 % Monocytes % 10 % Eosinophils % 1 % Basophils % 0 % Neutrophils # 7.9 H (1.3-7.7) k/uL Lymphocytes # 1.2 (1.0-4.8) k/uL Monocytes # 1.1 H (0-1.0) k/uL Eosinophils # 0.1 (0-0.7) k/uL Basophils # 0.0 (0-0.2) k/uL Sodium (137-145) mmol/L Potassium (3.5-5.1) mmol/L Chloride (98-107) mmol/L Carbon Dioxide (22-30) mmol/L Anion Gap mmol/L BUN (7-17) mg/dL Creatinine (0.52-1.04) mg/dL Est GFR (CKD-EPI)AfAm (>60 ml/min/1.73 sqM) Est GFR (CKD-EPI)NonAf (>60 ml/min/1.73 sqM) Glucose (74-99) mg/dL Calcium (8.4-10.2) mg/dL Total Bilirubin (0.2-1.3) mg/dL AST (14-36) U/L ALT (4-34) U/L Alkaline Phosphatase (38-126) U/L Total Protein (6.3-8.2) g/dL Albumin (3.5-5.0) g/dL Urine Color Yellow Urine Appearance Cloudy H (Clear) Urine pH 5.5 (5.0-8.0) Ur Specific Mcgraws 1.016 (1.001-1.035) Urine Protein 2+ H (Negative) Urine Glucose (UA) Negative (Negative) Urine Ketones Negative (Negative) Urine Blood Moderate H (Negative) Urine Nitrite Negative (Negative) Urine Bilirubin Negative (Negative) Urine Urobilinogen <2.0 (<2.0) mg/dL Ur Leukocyte Esterase Large H (Negative) Urine RBC 154 H (0-5) /hpf Urine WBC >182 H (0-5) /hpf Urine WBC Clumps Few H (None) /hpf Ur Squamous Epith Cells 1 (0-4) /hpf Urine Bacteria Rare H (None) /hpf Urine Mucus Many H (None) /hpf Urine HCG, Qual Not Detected (Not Detectd) 10/26/19 Range/Units 14:17 WBC (3.8-10.6) k/uL RBC (3.80-5.40) m/uL Hgb (11.4-16.0) gm/dL Hct (34.0-46.0) % MCV (80.0-100.0) fL MCH (25.0-35.0) pg MCHC (31.0-37.0) g/dL RDW (11.5-15.5) % Plt Count (150-450) k/uL Neutrophils % % Lymphocytes % % Monocytes % % Eosinophils % % Basophils % % Neutrophils # (1.3-7.7) k/uL Lymphocytes # (1.0-4.8) k/uL Monocytes # (0-1.0) k/uL Eosinophils # (0-0.7) k/uL Basophils # (0-0.2) k/uL Sodium 135 L (137-145) mmol/L Potassium 4.1 (3.5-5.1) mmol/L Chloride 104 (98-107) mmol/L Carbon Dioxide 22 (22-30) mmol/L Anion Gap 9 mmol/L BUN 8 (7-17) mg/dL Creatinine 0.59 (0.52-1.04) mg/dL Est GFR (CKD-EPI)AfAm >90 (>60 ml/min/1.73 sqM) Est GFR (CKD-EPI)NonAf >90 (>60 ml/min/1.73 sqM) Glucose 94 (74-99) mg/dL Calcium 9.2 (8.4-10.2) mg/dL Total Bilirubin 1.5 H (0.2-1.3) mg/dL AST 16 (14-36) U/L ALT 9 (4-34) U/L Alkaline Phosphatase 58 (38-126) U/L Total Protein 7.6 (6.3-8.2) g/dL Albumin 4.2 (3.5-5.0) g/dL Urine Color Urine Appearance (Clear) Urine pH (5.0-8.0) Ur Specific Mcgraws (1.001-1.035) Urine Protein (Negative) Urine Glucose (UA) (Negative) Urine Ketones (Negative) Urine Blood (Negative) Urine Nitrite (Negative) Urine Bilirubin (Negative) Urine Urobilinogen (<2.0) mg/dL Ur Leukocyte Esterase (Negative) Urine RBC (0-5) /hpf Urine WBC (0-5) /hpf Urine WBC Clumps (None) /hpf Ur Squamous Epith Cells (0-4) /hpf Urine Bacteria (None) /hpf Urine Mucus (None) /hpf Urine HCG, Qual (Not Detectd) Disposition Clinical Impression: UTI (urinary tract infection) Disposition: HOME SELF-CARE Condition: Good Instructions (If sedation given, give patient instructions): Urinary Tract Infection in Women (ED) Additional Instructions: Please use medication as discussed. Please follow-up with family doctor in the next 24-48 hours, come back for increasing pain, fevers, lightheadedness-- Please return to emergency room if the symptoms increase or worsen or for any other concerns. Prescriptions: Cephalexin [Keflex] 500 mg PO Q6HR 7 Days #28 cap Is patient prescribed a controlled substance at d/c from ED?: No Referrals: Eugene Rosen MD [Primary Care Provider] - 1-2 days Time of Disposition: 14:12
[2019-10-26] MEDS ORDERED: KETOROLAC 60 MG/2 ML VIAL IM STA (13:33)
--- NOTE | 2019-10-26 13:57 | CT ---
EXAMINATION TYPE: CT abdomen pelvis wo con DATE OF EXAM: 10/26/2019 COMPARISON: None HISTORY: Pain with urination CT DLP: 375.1 mGycm Examination of the solid and hollow viscera is limited given the lack of contrast. FINDINGS: LUNG BASES: No evidence for nodule. No evidence for infiltrate. LIVER/GB: The gallbladder is unremarkable. No space-occupying hepatic lesion. PANCREAS: No pancreatic mass identified. No inflammatory process seen. SPLEEN: No evidence for splenomegaly. No intrasplenic lesions seen. ADRENALS: No adrenal nodules identified. No evidence for thickening. KIDNEYS: There is a calcification adjacent to the right UVJ which is felt to reflect a phlebolith rat her than a UVJ calculus given the fact that I do not see evidence for hydronephrosis. Correlate clini ori with urinalysis. No renal calculi seen. BOWEL: Appendix has a normal appearance. No evidence of bowel obstruction. No inflammatory process. Lymph nodes: No evidence for adenopathy greater than 1 cm. Abdominal aorta: Atheromatous changes seen. No evidence for aneurysm. Genital organs: Tubal ligation changes noted. Other: No significant abnormality. IMPRESSION: : There is a calcification adjacent to the right UVJ which is felt to reflect a phlebolith rather caty n a UVJ calculus given the fact that I do not see evidence for hydronephrosis. Correlate clinically w ith urinalysis.
[2019-10-26 14:44] LABS: Basophils % (A) 0 %; Eosinophils # (A) 0.1 k/uL (0-0.7); Eosinophils % (A) 1 %; HCT 39.1 % (34.0-46.0); HGB 12.9 gm/dL (11.4-16.0); Lymphocytes # (A) 1.2 k/uL (1.0-4.8); Lymphocytes % (A) 11 %; MCH 32.5 pg (25.0-35.0); MCHC 32.9 g/dL (31.0-37.0); MCV 98.9 fL (80.0-100.0); Mean Platelet Volume 8.3; Monocytes # (A) 1.1 k/uL (0-1.0); Monocytes % (A) 10 %; Neutrophils # (A) 7.9 k/uL (1.3-7.7); Neutrophils % (A) 73 %; Platelet Count 233 k/uL (150-450); RBC 3.96 m/uL (3.80-5.40); WBC 10.9 k/uL (3.8-10.6)
[2019-10-26 14:53] LABS: ALT 9 U/L (4-34); AST 16 U/L (14-36); African American GFR (CKD) >90 (>60 ml/min/1.73 sqM); Albumin 4.2 g/dL (3.5-5.0); Alkaline Phosphatase 58 U/L (38-126); Anion Gap 9 mmol/L; Blood Urea Nitrogen 8 mg/dL (7-17); Calcium 9.2 mg/dL (8.4-10.2); Carbon Dioxide 22 mmol/L (22-30); Chloride 104 mmol/L (98-107); Glucose 94 mg/dL (74-99); Non-African American GFR(CKD) >90 (>60 ml/min/1.73 sqM); Potassium 4.1 mmol/L (3.5-5.1); Sodium 135 mmol/L (137-145); Total Bilirubin 1.5 mg/dL (0.2-1.3); Total Protein 7.6 g/dL (6.3-8.2)
[2019-10-26 15:54] VITALS: BP 110/72; PULSE 76; RESP 20; TEMP 97.2
== END 2019-10-26 15:45 | disposition home or self-care (01) ==
LOC: EC 12:23
DX: N39.0 Urinary tract infection, site not specified (principal); D72.829 Elevated white blood cell count, unspecified; F17.200 Nicotine dependence, unspecified, uncomplicated
CPT/HCPCS: 36415; 80053; 85025; 81001; 81025; 87086; 87077; 87186; 74176; 99284; 96365; 96372; J0696; J1885

== ENCOUNTER 2021-03-14 17:56 | Emergency (ER) | payer OTHER ==
[2021-03-14 18:07] VITALS: BP 132/91; PULSE 100; RESP 18; TEMP 98
[2021-03-14] MEDS ORDERED: DIPH,PERTUS(ACELL)TETVAC-LF 0.5 ML VIAL IM ONE (18:17)
[2021-03-14] MEDS ORDERED: LIDOCAINE 1% INJ 10MG/ML (20 ML MDV) SQ ONE (18:17)
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
--- NOTE | 2021-03-14 18:37 | XR ---
EXAMINATION TYPE: XR hand complete RT DATE OF EXAM: 03/14/2021 COMPARISON: NONE HISTORY: Dogbite TECHNIQUE: 3 views FINDINGS: Metacarpals appear intact. There is an old healed fracture of the distal fifth metacarpal. Fingers are intact. Carpal bones are intact. IMPRESSION: No acute abnormality of the right hand.
[2021-03-14] MEDS ORDERED: AMOXIC-POT CLAV 875-125MG 1 EACH TAB PO STA (19:42)
== END 2021-03-14 19:46 | disposition home or self-care (01) ==
LOC: EC 17:56
DX: S61.451A Open bite of right hand, initial encounter (principal); F17.200 Nicotine dependence, unspecified, uncomplicated; F12.90 Cannabis use, unspecified, uncomplicated; Z98.51 Tubal ligation status; W54.0XXA Bitten by dog, initial encounter
CPT/HCPCS: 99283; 90471; 12001; 73130; 90715; J2001

== ENCOUNTER 2021-09-07 13:57 | Emergency (ER) | payer OTHER ==
[2021-09-07 14:04] VITALS: BP 164/76; PULSE 83; RESP 18; TEMP 98.2
[2021-09-07 14:46] LABS: Basophils % (A) 0 %; Eosinophils # (A) 0.4 k/uL (0-0.7); Eosinophils % (A) 6 %; HCT 42.2 % (34.0-46.0); Lymphocytes # (A) 2.5 k/uL (1.0-4.8); Lymphocytes % (A) 35 %; MCH 33.1 pg (25.0-35.0); MCHC 33.2 g/dL (31.0-37.0); MCV 99.7 fL (80.0-100.0); Mean Platelet Volume 8.7; Monocytes # (A) 0.7 k/uL (0-1.0); Monocytes % (A) 9 %; Neutrophils # (A) 3.3 k/uL (1.3-7.7); Neutrophils % (A) 45 %; Platelet Count 317 k/uL (150-450); RBC 4.23 m/uL (3.80-5.40); RDW 12.8 % (11.5-15.5); WBC 7.2 k/uL (3.8-10.6)
[2021-09-07 14:58] LABS: INR 0.9 (<1.2); Partial Thromboplastin Time 25.8 sec (22.0-30.0); Prothrombin Time 10.2 sec (9.0-12.0)
--- NOTE | 2021-09-07 15:00 | XR ---
EXAMINATION TYPE: XR chest 2V DATE OF EXAM: 09/07/2021 COMPARISON: 07/10/2018 TECHNIQUE: PA and lateral views submitted. HISTORY: Chest pain FINDINGS: The lungs are clear and there is no pneumothorax, pleural effusion, or focal pneumonia. Hyperinflat ion suggests COPD there are chronic right-sided rib deformities. Heart size normal with no overt fail ure. IMPRESSION: 1. No acute process. Correlate for COPD.
[2021-09-07 15:05] LABS: ALT 11 U/L (4-34); AST 17 U/L (14-36); African American GFR (CKD) >90 (>60 ml/min/1.73 sqM); Albumin 4.5 g/dL (3.5-5.0); Alkaline Phosphatase 59 U/L (38-126); Anion Gap 9 mmol/L; Blood Urea Nitrogen 9 mg/dL (7-17); Calcium 9.1 mg/dL (8.4-10.2); Carbon Dioxide 22 mmol/L (22-30); Chloride 107 mmol/L (98-107); Glucose 92 mg/dL (74-99); Magnesium 1.9 mg/dL (1.6-2.3); Non-African American GFR(CKD) >90 (>60 ml/min/1.73 sqM); Potassium 4.2 mmol/L (3.5-5.1); Sodium 138 mmol/L (137-145); Total Bilirubin 1.5 mg/dL (0.2-1.3); Total Protein 8.4 g/dL (6.3-8.2)
--- NOTE | 2021-09-07 15:29 | ED ---
General Adult HPI - General Chief complaint: Chest Pain Stated complaint: Chest pain, Shortness of Breath, Time Seen by Provider: 09/07/21 14:10 Source: patient, RN notes reviewed, old records reviewed Mode of arrival: ambulatory Limitations: no limitations - History of Present Illness Initial comments: This is a 46-year-old female presents emergency Department with left-sided chest pain she states it's worse with cough and worse with taking a deep breath. Patient states that she's not taking deep breath or coughing there is no pain at all. Patient denies any reproducible pain. Patient denies any rashes swelling or erythema to the area. Patient states she's not short of breath but it hurts take a deep breath. Patient denies any medical history she is a smoker however. Patient denies abdominal pain patient denies nausea vomiting diarrhea per patient denies headache patient denies numbness weakness per patient denies lightheadedness dizziness or near syncopal episode. - Related Data Previous Rx's Medication Instructions Recorded Amoxic-Pot Clav 875-125Mg 1 tab PO BID 10 Days #20 tab 03/14/21 [Augmentin 875-125] Ketorolac [Toradol] 10 mg PO Q6HR #15 tab 09/07/21 Allergies Allergy/AdvReac Type Severity Reaction Status Date / Time No Known Allergies Allergy Verified 03/14/21 19:15 Review of Systems ROS Statement: Those systems with pertinent positive or pertinent negative responses have been documented in the HPI. ROS Other: All systems not noted in ROS Statement are negative. Past Medical History Past Medical History: No Reported History History of Any Multi-Drug Resistant Organisms: None Reported Past Surgical History: Tubal Ligation Past Anesthesia/Blood Transfusion Reactions: No Reported Reaction Past Psychological History: No Psychological Hx Reported Smoking Status: Current every day smoker Past Alcohol Use History: None Reported Past Drug Use History: Marijuana - Past Family History Mother Additional Family Medical History / Comment(s): AAA - pt at 58 from dx Father Family Medical History: Coronary Artery Disease (CAD), Diabetes Mellitus, Hyp ertension Additional Family Medical History / Comment(s): passed with heart issues General Exam - General Exam Comments Initial Comments: GENERAL: Patient is well-developed and well-nourished. Patient is nontoxic and well- hydrated and is in mild distress. ENT: Neck is soft and supple. No significant lymphadenopathy is noted. Oropharynx is clear. Moist mucous membranes. Neck has full range of motion without eliciting any pain. EYES: The sclera were anicteric and conjunctiva were pink and moist. Extraocular movements were intact and pupils were equal round and reactive to light. Eyelids were unremarkable. PULMONARY: Unlabored respirations. Good breath sounds bilaterally. No audible rales rhonchi or wheezing was noted. CARDIOVASCULAR: There is a regular rate and rhythm without any murmurs gallops or rubs. ABDOMEN: Soft and nontender with normal bowel sounds. SKIN: Skin is clear with no lesions or rashes and otherwise unremarkable. NEUROLOGIC: Patient is alert and oriented x3. Cranial nerves II through XII are grossly intact. Motor and sensory are also intact. Normal speech, volume and content. Symmetrical smile. MUSCULOSKELETAL: Normal extremities with adequate strength and full range of motion. No lower extremity swelling or edema. No calf tenderness. LYMPHATICS: No significant lymphadenopathy is noted PSYCHIATRIC: Normal psychiatric evaluation. Limitations: no limitations Course Vital Signs 09/07/21 14:01 Temperature 98.2 F Pulse Rate 83 Respiratory 18 Rate Blood Pressure 164/76 O2 Sat by Pulse 98 Oximetry Medical Decision Making - Medical Decision Making EKG shows sinus rhythm at 72 bpm LA interval 190 QRS is 105 Q-T intervals 35 QTC is 49. Patient's EKG shows no ST segment elevation or depression. Patient received Toradol and took her pain almost completely away. - Lab Data Result diagrams: 09/07/21 14:36 09/07/21 14:36 Lab Results 09/07/21 09/07/21 09/07/21 Range/Units 14:36 14:36 14:36 WBC 7.2 (3.8-10.6) k/uL RBC 4.23 (3.80-5.40) m/uL Hgb 14.0 (11.4-16.0) gm/dL Hct 42.2 (34.0-46.0) % MCV 99.7 (80.0-100.0) fL MCH 33.1 (25.0-35.0) pg MCHC 33.2 (31.0-37.0) g/dL RDW 12.8 (11.5-15.5) % Plt Count 317 (150-450) k/uL MPV 8.7 Neutrophils % 45 % Lymphocytes % 35 % Monocytes % 9 % Eosinophils % 6 % Basophils % 0 % Neutrophils # 3.3 (1.3-7.7) k/uL Lymphocytes # 2.5 (1.0-4.8) k/uL Monocytes # 0.7 (0-1.0) k/uL Eosinophils # 0.4 (0-0.7) k/uL Basophils # 0.0 (0-0.2) k/uL PT 10.2 (9.0-12.0) sec INR 0.9 (<1.2) APTT 25.8 (22.0-30.0) sec D-Dimer 0.32 (<0.60) mg/L FEU Sodium 138 (137-145) mmol/L Potassium 4.2 (3.5-5.1) mmol/L Chloride 107 (98-107) mmol/L Carbon Dioxide 22 (22-30) mmol/L Anion Gap 9 mmol/L BUN 9 (7-17) mg/dL Creatinine 0.58 (0.52-1.04) mg/dL Est GFR (CKD-EPI)AfAm >90 (>60 ml/min/1.73 sqM) Est GFR (CKD-EPI)NonAf >90 (>60 ml/min/1.73 sqM) Glucose 92 (74-99) mg/dL Calcium 9.1 (8.4-10.2) mg/dL Magnesium 1.9 (1.6-2.3) mg/dL Total Bilirubin 1.5 H (0.2-1.3) mg/dL AST 17 (14-36) U/L ALT 11 (4-34) U/L Alkaline Phosphatase 59 (38-126) U/L Troponin I (0.000-0.034) ng/mL Total Protein 8.4 H (6.3-8.2) g/dL Albumin 4.5 (3.5-5.0) g/dL 09/07/21 Range/Units 14:36 WBC (3.8-10.6) k/uL RBC (3.80-5.40) m/uL Hgb (11.4-16.0) gm/dL Hct (34.0-46.0) % MCV (80.0-100.0) fL MCH (25.0-35.0) pg MCHC (31.0-37.0) g/dL RDW (11.5-15.5) % Plt Count (150-450) k/uL MPV Neutrophils % % Lymphocytes % % Monocytes % % Eosinophils % % Basophils % % Neutrophils # (1.3-7.7) k/uL Lymphocytes # (1.0-4.8) k/uL Monocytes # (0-1.0) k/uL Eosinophils # (0-0.7) k/uL Basophils # (0-0.2) k/uL PT (9.0-12.0) sec INR (<1.2) APTT (22.0-30.0) sec D-Dimer (<0.60) mg/L FEU Sodium (137-145) mmol/L Potassium (3.5-5.1) mmol/L Chloride (98-107) mmol/L Carbon Dioxide (22-30) mmol/L Anion Gap mmol/L BUN (7-17) mg/dL Creatinine (0.52-1.04) mg/dL Est GFR (CKD-EPI)AfAm (>60 ml/min/1.73 sqM) Est GFR (CKD-EPI)NonAf (>60 ml/min/1.73 sqM) Glucose (74-99) mg/dL Calcium (8.4-10.2) mg/dL Magnesium (1.6-2.3) mg/dL Total Bilirubin (0.2-1.3) mg/dL AST (14-36) U/L ALT (4-34) U/L Alkaline Phosphatase (38-126) U/L Troponin I <0.012 (0.000-0.034) ng/mL Total Protein (6.3-8.2) g/dL Albumin (3.5-5.0) g/dL Disposition Clinical Impression: Pleuritic chest pain Disposition: HOME SELF-CARE Condition: Good Instructions (If sedation given, give patient instructions): Chest Pain (ED) Prescriptions: Ketorolac [Toradol] 10 mg PO Q6HR #15 tab Is patient prescribed a controlled substance at d/c from ED?: No Referrals: None,Stated [Primary Care Provider] - 1-2 days Time of Disposition: 16:47
[2021-09-07] MEDS ORDERED: KETOROLAC 15 MG/ML 1 ML VIAL IVP STA (15:31)
== END 2021-09-07 18:22 | disposition home or self-care (01) ==
LOC: EC 13:57
DX: R07.81 Pleurodynia (principal); E11.9 Type 2 diabetes mellitus without complications; I10 Essential (primary) hypertension; F17.200 Nicotine dependence, unspecified, uncomplicated
CPT/HCPCS: 36415; 93005; 85379; 80053; 83735; 84484; 85025; 85610; 85730; 71046; 99285; 96374; J1885